=== PATIENT | female | born 1980 | race American Indian/Alaskan Native ===

== ENCOUNTER 2017-08-10 10:17 | Outpatient (CLI) | payer MEDICAID ==
--- NOTE | 2017-08-10 11:36 | Cat Scan Report ---
CT scan of sinuses: History: Nasal congestion. Findings: The frontal, maxillary, ethmoid and sphenoid sinuses are visualized. There is complete opacification noted of the right and left maxillary sinus with extension to the nasal cavity including the ethmoid sinuses. Opacification also noted of the frontal sinus. The sphenoid sinus appears pneumatized. There is hypertrophy noted of the turbinates. The nasal septum appears midline. There is widening noted of the ostiomeatal complex. The medial wall is not optimally visualized. The lateral wall and the orbital wall of the maxillary sinuses appears intact. Impression: Extensive sinus disease as detailed above, probably a combination of acute and chronic sinusitis. Neoplasm, if present in the region, cannot be excluded.
== END 2017-08-10 10:18 | disposition home or self-care (01) ==
LOC: CT 10:17
PROVIDERS: ATTEND Otolaryngology
DX: J32.2 Chronic ethmoidal sinusitis (principal); J34.3 Hypertrophy of nasal turbinates; R09.81 Nasal congestion
CPT/HCPCS: 70486

== ENCOUNTER 2018-06-15 12:13 | Emergency (ER) | payer MEDICAID ==
[2018-06-15 12:40] VITALS: BP 152/99
[2018-06-15] MEDS ORDERED: PERCOCET 5/325 PO STA (13:45)
--- NOTE | 2018-06-15 13:51 | Emergency Department Report ---
ED ENT HPI - General Chief complaint: Dental/Oral Stated complaint: MIGUEL/DENTAL ABSCESS Time Seen by Provider: 06/15/18 13:40 Source: patient Mode of arrival: Ambulatory Limitations: No Limitations - History of Present Illness Initial comments: 37-year-old female with a penicillin allergy presents to the emergency department complaining of continued dental pain despite a couple days. Use clindamycin and hydrocodone. Post swelling to her left mandible but does not have a dental appointment until June 29 MD complaint: tooth pain, other (swelling to the left mandible) -: Gradual Severity: mild, severe Quality: constant (throbbing) Consistency: constant Improves with: none Worsens with: position, eating, movement Context- Dental: history of dental caries Associated Symptoms: toothache. denies: discharge from ear, rhinorrhea - Related Data Previous Rx's Medication Instructions Recorded Last Taken Type Chlorhexidine Mouthwash [Peridex] 15 ml MM BID #1 bottle 06/15/18 Unknown Rx Ketorolac [Toradol] 10 mg PO Q6H PRN #15 tablet 06/15/18 Unknown Rx Lidocaine Viscous 2% 5 ml MM Q3H PRN #120 udc 06/15/18 Unknown Rx Allergies Allergy/AdvReac Type Severity Reaction Status Date / Time Penicillins AdvReac Hives Unverified 08/10/17 10:15 ED Dental HPI - General Chief complaint: Dental/Oral Stated complaint: MIGUEL/DENTAL ABSCESS Time Seen by Provider: 06/15/18 13:40 Source: patient Mode of arrival: Ambulatory Limitations: No Limitations - Related Data Previous Rx's Medication Instructions Recorded Last Taken Type Chlorhexidine Mouthwash [Peridex] 15 ml MM BID #1 bottle 06/15/18 Unknown Rx Ketorolac [Toradol] 10 mg PO Q6H PRN #15 tablet 06/15/18 Unknown Rx Lidocaine Viscous 2% 5 ml MM Q3H PRN #120 udc 06/15/18 Unknown Rx Allergies Allergy/AdvReac Type Severity Reaction Status Date / Time Penicillins AdvReac Hives Unverified 08/10/17 10:15 ED Review of Systems ROS: Stated complaint: MIGUEL/DENTAL ABSCESS Other details as noted in HPI Constitutional: denies: chills, fever Eyes: denies: eye pain, eye discharge, vision change ENT: dental pain. denies: ear pain, throat pain Respiratory: denies: cough, shortness of breath, wheezing Cardiovascular: denies: chest pain, palpitations Endocrine: no symptoms reported Gastrointestinal: denies: abdominal pain, nausea, diarrhea Genitourinary: denies: urgency, dysuria, discharge Musculoskeletal: denies: back pain, joint swelling, arthralgia Skin: denies: rash, lesions Neurological: denies: headache, weakness, paresthesias Psychiatric: denies: anxiety, depression Hematological/Lymphatic: denies: easy bleeding, easy bruising ED Past Medical Hx - Past Medical History Previous Medical History?: No - Surgical History Past Surgical History?: No - Social History Smoking Status: Never Smoker Substance Use Type: None - Medications Home Medications: Home Medications Medication Instructions Recorded Confirmed Last Taken Type Chlorhexidine Mouthwash [Peridex] 15 ml MM BID #1 bottle 06/15/18 Unknown Rx Ketorolac [Toradol] 10 mg PO Q6H PRN #15 tablet 06/15/18 Unknown Rx Lidocaine Viscous 2% 5 ml MM Q3H PRN #120 udc 06/15/18 Unknown Rx ED Physical Exam - General Limitations: No Limitations General appearance: alert, in no apparent distress - Head Head exam: Present: atraumatic, normocephalic - Eye Eye exam: Present: normal appearance - ENT ENT exam: Present: mucous membranes moist, other (dental tenderness to tooth # 19 and 20 with adjacent gingival swelling suggestive of a dental abscess formation. Tongue and uvula are midline. Airway is patent. No drooling. No lymphadenopathy is appreciated to the neck. No hematomas present. Normal [place]'s and Stensen's duct) - Neck Neck exam: Present: normal inspection, full ROM. Absent: lymphadenopathy - Respiratory Respiratory exam: Present: normal lung sounds bilaterally. Absent: respiratory distress - Cardiovascular Cardiovascular Exam: Present: regular rate, normal rhythm. Absent: systolic murmur, diastolic murmur, rubs, gallop - GI/Abdominal GI/Abdominal exam: Present: soft, normal bowel sounds - Extremities Exam Extremities exam: Present: normal inspection - Back Exam Back exam: Present: normal inspection - Neurological Exam Neurological exam: Present: alert, oriented X3 - Psychiatric Psychiatric exam: Present: normal affect, normal mood - Skin Skin exam: Present: warm, dry, intact, normal color. Absent: rash ED Course Vital Signs 06/15/18 12:35 Temperature 98.9 F Pulse Rate 87 Respiratory 16 Rate Blood Pressure 152/99 O2 Sat by Pulse 98 Oximetry ED Medical Decision Making - Differential Diagnosis into abscess vs malignancy vs salivary stone vs inflammatory granulation ti Critical care attestation.: If time is entered above; I have spent that time in minutes in the direct care of this critically ill patient, excluding procedure time. ED Disposition Clinical Impression: Dental abscess Disposition: DC-01 TO HOME OR SELFCARE Is pt being admited?: No Does the pt Need Aspirin: No Condition: Stable Instructions: Dental Abscess (ED) Referrals: PRIMARY CARE, [Primary Care Provider] - 3-5 Days
== END 2018-06-15 13:58 | disposition home or self-care (01) ==
LOC: ED 12:13
DX: K04.7 Periapical abscess without sinus (principal); Z88.0 Allergy status to penicillin
CPT/HCPCS: 99282